=== PATIENT | male | born 1940 | race Caucasian/White ===

== ENCOUNTER 2016-10-13 13:07 | Outpatient (CLI) | payer MEDICARE, OTHER | END 2016-10-13 13:08 | disposition home or self-care (01) | DX: J11.1 Influenza due to unidentified influenza virus with other respiratory manifestations (principal) ==

== ENCOUNTER 2017-04-30 15:46 | Outpatient (CLI) | payer MEDICARE, OTHER ==
--- NOTE | 2017-04-30 16:33 | CT Preliminary Report ---
Exam: CT Head W/O IMPRESSION: 1. Positive for intracranial acute parenchymal hemorrhage in the right parietal-occipital lobe. 2. No subdural or epidural hematoma. 3. No midline shift or herniation. RADIA The critical result notification system was initiated by Dr. Casey Wallace at 16:20 hrs on . The above critical findings were discussed with Dr Conley by Dr. Casey Wallace at 16:32 hrs on 04/30/17. SITE ID: [id number]
--- NOTE | 2017-04-30 16:36 | CT Report ---
EXAM: CT HEAD EXAM DATE: 04/30/2017 04:13 PM. CLINICAL HISTORY: WALKING DIFFICULTY, MEMORY LOSS. COMPARISON: None. TECHNIQUE: Multiaxial CT images were obtained from the foramen magnum to the vertex. IV contrast: Non e. Reformats: Coronal. In accordance with CT protocol optimization, one or more of the following dose reduction techniques w ere utilized for this exam: automated exposure control, adjustment of mA and/or KV based on patient s ize, or use of iterative reconstructive technique. FINDINGS: Parenchyma: There is a parenchymal hematoma in the right parietal-occipital lobe. The hematoma is hyp erdense and appears acute. The hematoma measures 31 x 17 x 30 mm. There is a mild amount of surroundi ng edema. There is mild localized mass effect without midline shift. Extraaxial Spaces: No abnormal subdural or epidural fluid collection. Ventricles: Ventricles are normal in size and location. Sinuses: Imaged paranasal sinuses, orbits, and mastoids show no significant abnormality. Bones: No evidence of fracture or calvarial defect. Other: None. IMPRESSION: 1. Positive for intracranial acute parenchymal hemorrhage in the right parietal-occipital lobe. 2. No subdural or epidural hematoma. 3. No midline shift or herniation. RADIA The critical result notification system was initiated by Dr. Casey Wallace at 16:20 hrs on . The above critical findings were discussed with Dr Conley by Dr. Casey Wallace at 16:32 hrs on 04/30/17. Referring Provider Line: [phone] SITE ID: [id number]
== END 2017-04-30 15:47 | disposition home or self-care (01) ==
LOC: DI 15:46
PROVIDERS: ATTEND Family Medicine
DX: I61.9 Nontraumatic intracerebral hemorrhage, unspecified (principal)
CPT/HCPCS: 70450

== ENCOUNTER 2017-04-30 16:45 | Emergency (ER) | payer MEDICARE, OTHER ==
--- NOTE | 2017-04-30 16:57 | ED Physician Documentation ---
PD HPI FOCAL NEURO - Stated complaint Stated Complaint: DIZZY - History obtained from History obtained from: Patient, Family - History of Present Illness Timing - onset: Other (Relatively healthy 76-year-old gentleman, who likes to drink alcohol daily. A couple of days ago he was drinking, the family heard a crash against the house and are not sure if he fell or if it was a cooking implement. Regardless about yesterday morning he started to have some memory difficulties, feeling like he was drunk and off balance with some spatial issues. He saw his physician today who ordered an outpatient CT showing a right parietal occipital hematoma measuring 31 x 17 x 30 mm with a small amount of surrounding edema. He was referred here from the CT scanner for further evaluation and transfer.) Review of Systems Ten Systems: 10 systems reviewed and negative Constitutional: reports: Reviewed and negative Nose: reports: Reviewed and negative Throat: reports: Reviewed and negative Cardiac: reports: Reviewed and negative Respiratory: reports: Reviewed and negative PD PAST MEDICAL HISTORY - Past Medical History Past Medical History: No - Present Medications Home Medications: Ambulatory Orders Medication Instructions Recorded Confirmed No Known Home Medications [No 04/30/17 04/30/17 Known Home Medications] - Allergies Allergies/Adverse Reactions: Allergies Allergy/AdvReac Type Severity Reaction Status Date / Time No Known Drug Allergies Allergy Verified 04/30/17 17:06 - Living Situation Living Situation: reports: With family - Social History Does the pt drink ETOH?: Yes Does the pt have substance abuse?: No - Family History Family history: reports: Non contributory PD ED PE NORMAL - Vitals Vital signs reviewed: Yes - General General: Alert and oriented X 3, No acute distress - HEENT HEENT: PERRL, EOMI - Neck Neck: Supple, no meningeal sign, No bony TTP - Cardiac Cardiac: RRR, No murmur - Respiratory Respiratory: No respiratory distress, Clear bilaterally - Abdomen Abdomen: Normal bowel sounds, Soft, Non tender - Extremities Extremities: No deformity, No tenderness to palpate, Normal ROM s pain, No edema , No calf tenderness / cord - Neuro Neuro: Alert and oriented X 3, aws solution architect 2-12 intact, No motor deficit, No sensory deficit, Normal speech - Psych Psych: Normal mood, Normal affect Results - Vitals Vitals: Vital Signs - 24 hr 04/30/17 04/30/17 04/30/17 16:45 17:24 17:29 Temperature 36.8 C Heart Rate 82 79 83 Respiratory 17 17 17 Rate Blood Pressure 168/93 H 150/83 H 151/82 H O2 Saturation 15 L 94 93 04/30/17 04/30/17 04/30/17 17:34 17:38 17:45 Temperature Heart Rate 83 82 86 Respiratory 17 19 14 Rate Blood Pressure 147/82 H 149/75 H 158/73 H O2 Saturation 92 100 93 Oxygen O2 Source Room air - Labs Labs: Laboratory Tests 04/30/17 04/30/17 04/30/17 17:02 17:02 17:02 WBC 6.3 RBC 4.51 L Hgb 15.6 Hct 46.3 MCV 102.7 H MCH 34.5 H MCHC 33.6 RDW 13.6 Plt Count 165 MPV 8.2 Neut # 4.2 Lymph # 1.3 L [place] # 0.7 Eos # 0.1 Baso # 0.0 Absolute Nucleated RBC 0.00 Nucleated RBCs 0.1 PT 11.2 INR 1.0 APTT 26.1 Sodium 136 Potassium 3.9 Chloride 101 Carbon Dioxide 26 Anion Gap 9.0 BUN 19 Creatinine 1.2 Estimated GFR (MDRD) 59 L Glucose 103 H Calcium 9.0 Magnesium 1.7 Total Bilirubin 0.9 AST 23 ALT 22 Alkaline Phosphatase 57 Total Protein 7.3 Albumin 4.0 Globulin 3.3 Albumin/Globulin Ratio 1.2 Lipase 40 Ethyl Alcohol < 5.0 PD MEDICAL DECISION MAKING - ED course ED course: 76-year-old gentleman presents from CT with a known intraparenchymal hemorrhage. I spoke with Dr. Dooley, neurosurgery at [facility] at 5:05 PM who recommended nicardipine drip for a systolic blood pressure of 140 or less and 1 g of Keppra IV load. He defers to the benefit authorizer for admission. He was accepted by Dr. Oh the benefit authorizer at [facility] at 5:24 PM, I believe he is stable for ground transport given that he has normal exam and the time course. - Critical Care Time(min): 40 Time Includes: Direct patient care, Review records, Reassess patient, Document care, Coordinate care, Medical consult, Family consult for tx dec Procedures included in critical care time: Peripheral IV Departure - Departure Disposition: 02 Transfer Acute Care Hosp Clinical Impression: Parenchymal hemorrhage Condition: Serious
[2017-04-30] MEDS ORDERED: levETIRAcetam INJ 1,000 MG in SODIUM CHLORIDE 0.9% 100ML 100 ML IV STA (17:08)
[2017-04-30 17:11] LABS: BASOPHILS % (AUTO) 0.4 %; EOSINOPHILS # (AUTO) 0.1 10^3/uL (0.0-0.7); EOSINOPHILS % (AUTO) 1.8 %; HCT - HEMATOCRIT 46.3 % (42.0-52.0); HGB - HEMOGLOBIN 15.6 g/dL (14.0-18.0); LYMPHOCYTES # (AUTO) 1.3 10^3/uL (1.5-3.5); LYMPHOCYTES % (AUTO) 20.5 %; MEAN CORPUSCULAR HEMOGLOBIN 34.5 pg (27.0-31.0); MEAN CORPUSCULAR HGB CONC 33.6 g/dL (32.0-36.0); MEAN CORPUSCULAR VOLUME 102.7 fL (80.0-94.0); MEAN PLATELET VOLUME 8.2 fL (7.4-11.4); MONOCYTES # (AUTO) 0.7 10^3/uL (0.0-1.0); MONOCYTES % (AUTO) 11.2 %; NEUTROPHILS # (AUTO) 4.2 10^3/uL (1.5-6.6); NEUTROPHILS % (AUTO) 66.1 %; NUCLEATED RED BLOOD CELLS AUTO 0.1 /100WBC; RED BLOOD COUNT 4.51 10^6/uL (4.70-6.10); RED CELL DISTRIBUTION WIDTH 13.6 % (12.0-15.0); UNCORRECTED WHITE BLOOD COUNT 6.3 x10^3/uL; WHITE BLOOD COUNT 6.3 x10^3/uL (4.8-10.8)
[2017-04-30 17:20] LABS: PT - PROTHROMBIN TIME 11.2 secs (9.9-12.6)
[2017-04-30 17:21] LABS: ALBUMIN/GLOBULIN RATIO 1.2 (1.0-2.2); BILIRUBIN,TOTAL 0.9 mg/dL (0.2-1.0); BUN - BLOOD UREA NITROGEN 19 mg/dL (6-20); CARBON DIOXIDE - CO2 26 mmol/L (21-32); CHLORIDE 101 mmol/L (101-111); CREATININE 1.2 mg/dL (0.6-1.2); GFR - MDRD 59 (>89); GLUCOSE 103 mg/dL (70-100); LIPASE 40 U/L (22-51); MAGNESIUM 1.7 mg/dL (1.7-2.8); POTASSIUM 3.9 mmol/L (3.5-5.0); SODIUM 136 mmol/L (135-145); TOTAL PROTEIN 7.3 g/dL (6.7-8.2)
[2017-04-30 17:27] LABS: PARTIAL THROMBOPLASTIN TIME 26.1 secs (24.9-33.3)
[2017-04-30] MEDS ORDERED: SODIUM CHLORIDE FLUSH 0.9% 10 ML SYRINGE IVP ONE (17:55)
[2017-04-30 18:03] VITALS: BP 153/74
== END 2017-04-30 17:55 | disposition short-term general hospital (02) ==
LOC: ED 16:45
DX: I61.9 Nontraumatic intracerebral hemorrhage, unspecified (principal)
CPT/HCPCS: 36415; 70450; 80053; 83690; 83735; 85025; 85610; 85730; 96365; 96375; 99284; 99291; G0480; 80320

== ENCOUNTER 2017-04-30 18:30 | Outpatient (CLI) | payer MEDICARE, OTHER | END 2017-04-30 18:31 | disposition short-term general hospital (02) | LOC: EMS 18:30 | PROVIDERS: ATTEND Surgery | DX: I62.9 Nontraumatic intracranial hemorrhage, unspecified (principal) | CPT/HCPCS: A0425; A0426 ==

== ENCOUNTER 2017-06-13 12:46 | Outpatient (CLI) | payer MEDICARE, OTHER ==
[~2017-06-13 12:46] MED LIST: GADOBUTROL 10 MMOL/10 ML VIAL ONE
[2017-06-13 13:46] LABS: CREATININE 1.6 mg/dL (0.6-1.2)
[2017-06-13] MEDS ORDERED: GADOBUTROL 7.5 MMOL/7.5 ML VIAL ONE (14:19)
[2017-06-13] MEDS ORDERED: GADOBUTROL 7.5 MMOL/7.5 ML VIAL IVP ONE (14:59)
--- NOTE | 2017-06-13 17:35 | MRI Report ---
EXAM: MRI BRAIN WITH AND WITHOUT CONTRAST COMPARISON: CT head, 04/30/2017. CLINICAL HISTORY: Intraparenchymal hemorrhage TECHNIQUE: Multiplanar multisequence imaging is performed through the head with and without 4.5 cc Gadavist. FINDINGS: Diffusion-weighted imaging shows elevated signal in the right occipital cortex, corresponding to hemo rrhage, measures up to approximately 3.4 x 1.2 cm in maximal axial dimensions. There is associated di minished gradient signal. Minimal associated edema. Minimal associated mass effect. Gradient sequence shows no other evident prior parenchymal hemorrhage. 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 No abnormal parenchymal T1 signal elevation. There is abnormal T1 signal within the hemorrhage, expec zander. Evaluation of the postcontrast T1-weighted image shows no abnormal parenchymal enhancement. In the ar ea the hemorrhage there is no focal abnormal enhancement. Pituitary fossa, clivus and foramen magnum are unremarkable. Limited evaluation of the dural venous sinuses and arterial structures is unremarkable. Visualized orbits, paranasal sinuses and mastoids are unremarkable. No calvarial signal abnormality. Impression: Evolving right-sided occipital parenchymal hemorrhage, as detailed, without new hemorrhage, worsening mass effect, or evident associated mass. Referring Provider Line: [phone] SITE ID: [id number]
== END 2017-06-13 12:47 | disposition home or self-care (01) ==
LOC: DI 12:46
PROVIDERS: ATTEND Psychiatry & Neurology Neurology
DX: I61.9 Nontraumatic intracerebral hemorrhage, unspecified (principal)
CPT/HCPCS: 70553; 82565; A9585

== ENCOUNTER 2017-08-04 13:08 | Outpatient (CLI) | payer MEDICARE, OTHER ==
--- NOTE | 2017-08-04 17:34 | CT Report ---
CT HEAD WITHOUT CONTRAST: 08/04/2017 CLINICAL INDICATION: Weakness, history of hemorrhagic stroke. COMPARISON: 04/30/2017, MRI 06/13/2017. Axial CT images of the brain were obtained without intravenous contrast. In accordance with CT protocol optimization, one or more of the following dose reduction techniques w ere utilized for this exam: automated exposure control, adjustment of mA and/or KV based on patient size, or use of iterative reconstructive technique. The ventricles and sulci demonstrate mild symmetric enlargement, compatible with atrophy. Previously seen hemorrhagic infarction in the right parietal lobe has resolved. No new hemorrhage or large ter ritory infarction is identified. No hydrocephalus is present. The basilar cisterns remain patent. The visualized orbital contents and paranasal sinuses are unremarkable. IMPRESSION: MILD ATROPHY AND CHRONIC ISCHEMIC CHANGES. RESOLUTION OF PREVIOUSLY SEEN HEMORRHAGIC IN FARCTION IN THE RIGHT PARIETAL LOBE. NO NEW HEMORRHAGE. JOB #: [id number] EXT JOB #:[id number]
== END 2017-08-04 13:09 | disposition home or self-care (01) ==
LOC: DI 13:08
PROVIDERS: ATTEND Family Medicine
DX: I67.82 Cerebral ischemia (principal); G31.9 Degenerative disease of nervous system, unspecified
CPT/HCPCS: 70450

== ENCOUNTER 2019-10-12 08:00 | Outpatient (CLI) | payer MEDICARE, OTHER ==
[2019-10-12 13:06] LABS: BASOPHILS # (AUTO) 0.1 10^3/uL (0.0-0.1); EOSINOPHILS # (AUTO) 0.2 10^3/uL (0.0-0.7); EOSINOPHILS % (AUTO) 3.2 %; HGB - HEMOGLOBIN 13.1 g/dL (14.0-18.0); LYMPHOCYTES # (AUTO) 0.8 10^3/uL (1.5-3.5); LYMPHOCYTES % (AUTO) 15.4 %; MEAN CORPUSCULAR HEMOGLOBIN 32.2 pg (27.0-31.0); MEAN CORPUSCULAR HGB CONC 31.8 g/dL (32.0-36.0); MEAN CORPUSCULAR VOLUME 101.2 fL (80.0-94.0); MEAN PLATELET VOLUME 9.8 fL (7.4-11.4); MONOCYTES # (AUTO) 0.6 10^3/uL (0.0-1.0); MONOCYTES % (AUTO) 10.7 %; NEUTROPHILS # (AUTO) 3.7 10^3/uL (1.5-6.6); NEUTROPHILS % (AUTO) 69.5 %; PLT - PLATELET COUNT 344 10^3/uL (130-450); RED BLOOD COUNT 4.07 10^6/uL (4.70-6.10); RED CELL DISTRIBUTION WIDTH 13.1 % (12.0-15.0); WHITE BLOOD COUNT 5.3 x10^3/uL (4.8-10.8)
[2019-10-12 13:17] LABS: ALBUMIN 3.7 g/dL (3.2-5.5); ALBUMIN/GLOBULIN RATIO 0.9 (1.0-2.2); ALKALINE PHOSPHATASE 66 IU/L (42-121); ALT ALANINE AMINOTRANSFERASE 16 IU/L (10-60); AST ASPARTATE AMINOTRANSFERASE 17 IU/L (10-42); BILIRUBIN,TOTAL 0.3 mg/dL (0.2-1.0); BUN - BLOOD UREA NITROGEN 26 mg/dL (6-20); CALCIUM 9.4 mg/dL (8.5-10.3); CARBON DIOXIDE - CO2 26 mmol/L (21-32); CHLORIDE 101 mmol/L (101-111); CHOL/HDL RATIO 2.4 (<5.0); CHOLESTEROL 148 mg/dL; CREATININE 1.4 mg/dL (0.6-1.2); GFR - MDRD 49 (>89); GLUCOSE 111 mg/dL (70-100); HDL CHOLESTEROL 62 mg/dL; LDL CHOLESTEROL,CALCULATED 74 mg/dL; LDL/HDL RATIO 1.2 (<3.6); SODIUM 137 mmol/L (135-145); TOTAL PROTEIN 7.6 g/dL (6.7-8.2); VLDL CHOLESTEROL 12 mg/dL
== END 2019-10-12 23:59 | disposition home or self-care (01) ==
LOC: LAB.WCP 08:00
PROVIDERS: ATTEND Nurse Practitioner Family
DX: I10 Essential (primary) hypertension (principal); Z13.220 Encounter for screening for lipoid disorders
CPT/HCPCS: 36415; 80053; 80061; 83721; 85025

== ENCOUNTER 2019-10-13 08:08 | Outpatient (CLI) | payer MEDICARE, OTHER ==
--- NOTE | 2019-10-13 09:14 | DEXA Report ---
Reason: OSTEOPOROSIS, HIGH RISK MEDS Procedure Date: 10/13/2019 Accession Number: [id number] / [id number] Procedure: DEX - Dexa Spine and/or Hip CPT Code: Final Report FULL RESULT: EXAM: Dexa Spine and/or Hip DATE: 10/13/2019 8:39 AM CLINICAL HISTORY: OSTEOPOROSIS, HIGH RISK MEDS TECHNIQUE: Dual energy x-ray absorptiometry (DXA) was performed on a Prezma System. Regions measured are the AP Spine, femoral neck, and if needed forearm. COMPARISON: None. In accordance with the International Society for Clinical Densitometry (ISCD) guidelines, data from previous exams may be reanalyzed using current recommendations and techniques. This is done to allow a more accurate basis for comparison with the current study. FINDINGS: The data for the lumbar spine is as follows: BMD (g/cm/cm) T-SCORE Z-SCORE REGION L1 1.301 1.2 1.5 L2 1.395 1.3 1.6 L3 1.460 1.8 2.2 L4 1.417 1.5 1.8 TOTAL 1.392 1.4 1.8 NOTE: All evaluable vertebrae are used for classification The data for the hip is as follows: BMD (g/cm/cm) T-SCORE Z-SCORE REGION Neck 0.795 -2.1 -0.8 TOTAL 0.879 -1.5 -0.7 NOTE: The femoral neck or total proximal femur, whichever is lowest, is used for classification. IMPRESSION: THE WHO CLASSIFICATION BASED ON THE INTERNATIONAL REFERENCE STANDARD IS OSTEOPENIA. THE FRACTURE RISK IS INCREASED. RECOMMENDATION: Patients with diagnosis of osteoporosis or osteopenia should have regular bone mineral density assessment. For those eligible for Medicare, routine testing is allowed once every 2 years. Testing frequency can be increased for patients who have rapidly progressing disease or for those who are receiving medical therapy to restore bone mass. COMMENT: World Health Organization (WHO) definitions for osteoporosis and osteopenia: NORMAL BMD: T-score at -1.0 or higher, fracture risk is low OSTEOPENIA BMD: T-score between -1.0 and -2.5, fracture risk is increased. OSTEOPOROSIS BMD: T-score at -2.5 or lower, fracture risk is high. National Osteoporosis Foundation recommends: 1. Obtain adequate dietary calcium (at least 1200 mg per day) and vitamin D (400-800 international units per day). 2. Participate, as appropriate, in regular weightbearing and muscle-strengthening exercise. 3. Avoid tobacco use and reduce alcohol and caffeine intake. 4. For more detailed information see the website at www.NOF.org.
== END 2019-10-13 08:09 | disposition home or self-care (01) ==
LOC: DI 08:08
PROVIDERS: ATTEND Nurse Practitioner Family
DX: M85.88 Other specified disorders of bone density and structure, other site (principal); Z79.899 Other long term (current) drug therapy
CPT/HCPCS: 77080

== ENCOUNTER 2020-09-10 13:30 | Outpatient (CLI) | payer MEDICARE, OTHER | END 2020-09-10 23:59 | disposition home or self-care (01) | LOC: COV 13:30 | PROVIDERS: ATTEND Family Medicine | DX: R53.83 Other fatigue (principal); R09.81 Nasal congestion; R11.2 Nausea with vomiting, unspecified; Z20.828 Contact with and (suspected) exposure to other viral communicable diseases ==

== ENCOUNTER 2022-12-25 08:45 | Outpatient (CLI) | payer MEDICARE, OTHER | END 2022-12-25 08:46 | disposition home or self-care (01) | LOC: LAB.N 08:45 | PROVIDERS: ATTEND Radiology Radiation Oncology | DX: C61 Malignant neoplasm of prostate (principal) | CPT/HCPCS: 36415; 84153 ==